=== PATIENT | female | born 1985 | race Hispanic/Latino ===

== ENCOUNTER 2017-01-02 10:19 | Emergency (ER) | payer OTHER ==
[~2017-01-02] VITALS: Ht 165.1 cm; Wt 72.1 kg
--- NOTE | 2017-01-02 11:22 | ED GI/GU/ABDOMINAL COMPLAINT ---
History of Present Illness General Chief Complaint: Abdominal Pain/Flank Pain Stated Complaint: ABD PAIN Source: patient Exam Limitations: no limitations Vital Signs & Intake/Output Vital Signs & Intake/Output Vital Signs Date Time Temp Pulse Resp B/P B/P Pulse O2 O2 Flow FiO2 Mean Ox Delivery Rate 01/02 1403 97.2 70 18 112/69 100 Room Air 01/02 1218 97.4 75 18 121/71 97 Room Air 01/02 1207 97 01/02 1206 97.1 01/02 1027 97.1 82 16 123/77 97 Room Air Allergies Coded Allergies: aspirin (HEMATOMAS 01/02/17) Reconcile Medications Acetaminophen (Tylenol Extra Strength) 500 MG TABLET 1 TAB PO TID PRN pain Ondansetron (Zofran Odt) 4 MG TAB.RAPDIS 1 TAB SL TID PRN nausea and vomiting Triage Note: PT STATES SHE HAS LOWER ABD PAIN. PT STATES HER MENSES JUST ENDED YESTERDAY AND STATES THE PAIN BEGAN TODAY AND SHE VOMITED X2 THIS AM. PT IS ALSO C/O FEELING DIZZY. PT DENIES DIARRHEA. Triage Nurses Notes Reviewed? yes ? N Is pt currently ? No HPI: This patient is a 31-year-old female the past medical history including nephrolithiasis and endometriosis as well as left-sided ovarian cyst status post left-sided oophorectomy who presented to the emergency department today accompanied by her for evaluation of lower abdominal pain. The patient reported the pain began last night and was coming and going. She reported that she took Aleve last night which did help. However, this morning at 8:30 this morning she began having lower abdominal pain again which has been constant since onset. No palliative factors. The patient reported that the pain is currently a 7 out of 10 and sharp. It is nonradiating. The patient reported that she vomited twice this morning with no blood in the vomitus. She had associated nausea, but not currently. The vomiting happened after she tried to eat breakfast. The patient also reported current dizziness. She reported that she was supposed to get her period starting today, but this month her period came last week and ended yesterday. She reported that she has endometriosis and normally she has a lot of abdominal cramping with her periods, but last week she did not have any abdominal symptoms. She reported that there seemed to be more blood than normal and, "more red within normal." The patient denied any urinary burning, urgency, frequency, or blood in the urine. She reported that she has intermittent constipation at baseline. No diarrhea. She denied any fevers, chills, chest pain, or difficulty breathing. The patient did report that her and her are currently trying to get naturally and are worried that this may have been a miscarriage. They are new to the area and do not have an HELP DESK ASSISTANT or primary care physician. Past History Travel History Traveled to [place] past 21 day Yes Medical History Any Pertinent Medical History? 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 No Review of Systems Review of Systems Constitutional: Reports: no symptoms. EENTM: Reports: no symptoms. Respiratory: Reports: no symptoms. Cardiovascular: Reports: no symptoms. GI: Reports: see HPI. Genitourinary: Reports: see HPI. Musculoskeletal: Reports: no symptoms. Skin: Reports: no symptoms. Neurological/Psychological: Reports: see HPI. Hematologic/Endocrine: Reports: see HPI. All Other Systems: Reviewed and Negative Physical Exam Physical Exam Gastrointestinal: normal bowel sounds, soft, NONDISTENDED. tYMPANIC TO PERCUSSION IN ALL 4 QUADRANTS. tENDERNESS TO PALPATION IN THE RIGHT LOWER QUADRANT AND MID LOWER ABDOMINAL REGION WITH NO REBOUND OR GUARDING. nO MASSES APPRECIATED. nO ORGANOMEGALY APPRECIATED Comments: Well-developed well-nourished person in no acute distress HEENT: Normal EENT exam, head normocephalic, moist mucous membranes PERRLA bilaterally. EOMI bilaterally with no nystagmus Neck: Supple, no lymphadenopathy Back: Normal gait. Normal inspection Cardiovascular: Regular rate and rhythm with no murmurs Respiratory: No respiratory distress. Speaking in full sentences Extremity: Normal and equal pulses Neuro: Alert oriented x3, cranial nerves II through XII grossly intact. Skin: No appreciable rash on exposed skin, skin is warm and dry. Psych: Mood and affect is normal Core Measures ACS in differential dx? No Severe Sepsis Present: No Septic Shock Present: No Progress Differential Diagnosis: AMI, appendicitis, biliary colic, bowel obstruction, colon cancer, cholecystitis, diverticulitis, ectopic , endometritis, gastritis, hepatitis, ischemic bowel, inflamm bowel dis, intrauterine , kidney stone, ovarian cyst, ovarian torsion, pancreatitis, PID/cervicitis, PUD/ GERD, perforated viscous, threatened AB, UTI/pyelo Plan of Care: Orders Procedure Date/time Status HUMAN BETA HCG TITRE 01/02 1137 Complete PARTIAL THROMBOPLASTIN TIME 01/02 1115 Complete PROTHROMBIN TIME 01/02 1115 Complete TYPE & SCREEN (NOT X-MATCH) 01/02 1115 Complete CULTURE,URINE 01/02 1103 Active URINE 01/02 1103 Active URINALYSIS 01/02 1103 Active LIPASE 01/02 1103 Complete DIRECT BILIRUBIN 01/02 1103 Complete COMPREHENSIVE METABOLIC PANEL 01/02 1103 Complete CBC WITHOUT DIFFERENTIAL 01/02 1103 Complete AMYLASE 01/02 1103 Complete Laboratory Tests 01/02/17 1353: Urine Color Pending, Urine Clarity Pending, Urine pH Pending, Ur Specific [place] Pending, Urine Protein Pending, Urine Ketones Pending, Urine Nitrite Pending, Urine Bilirubin Pending, Urine Urobilinogen Pending, Ur Leukocyte Esterase Pending, Ur Microscopic Pending, Urine Hemoglobin Pending, Urine Glucose Pending, Urine Test Pending 01/02/17 1137: Anion Gap 13, Estimated GFR > 60, BUN/Creatinine Ratio 17.1, Glucose 85, Calcium 9.6, Total Bilirubin 0.4, Direct Bilirubin 0.2, AST 22, ALT 29, Alkaline Phosphatase 87, Total Protein 7.5, Albumin 4.1, Globulin 3.4, Albumin/Globulin Ratio 1.2, Amylase 81, Lipase 145, Beta HCG, Quant < 2.4, PT 10.8, INR 1.03, APTT 31, CBC w Diff NO MAN DIFF REQ, RBC 5.09, MCV 86.6, MCH 29.4, RDW 12.3, MPV 7.1 L, Gran % 57.5, Lymphocytes % 30.0, Monocytes % 7.4, Eosinophils % 4.5, Basophils % 0.6, Absolute Granulocytes 3.9, Absolute Lymphocytes 2.0, Absolute Monocytes 0.5, Absolute Eosinophils 0.3, Absolute Basophils 0, PUBS MCHC 34.0 01/02/17 1115: Beta HCG, Quant Cancelled Microbiology 01/02 1103 URINE ROUT: Urine Culture - ORD Diagnostic Imaging: Viewed by Me: Ultrasound. Discussed w/RAD: Ultrasound. Radiology Impression: PATIENT: JOSEFINA TOVAR PRESENT AGE: 31 PATIENT ACCOUNT NO: [id number] : 83 LOCATION: [facility] ORDERING PHYSICIAN: JEANNE DIETZ PA-C SERVICE DATE: 01/02/17 EXAM TYPE: US - US-PELVIC MASS DIAG EXAMINATION: US PELVIC MASS DIAGNOSIS CLINICAL INFORMATION: 31-year-old female with positive beta-hCG present for evaluation of ectopic , retained products of conception and ovarian torsion. History of left oophorectomy in year 2010. Laparoscopic surgery for endometriosis in August 2014 . Appendectomy 7 months ago. COMPARISON: None TECHNIQUE: Transabdominal imaging of the pelvis was performed. FINDINGS: The uterus-cervix is 7.8 cm in length. The uterus measures 3.4 cm AP and 5.5 cm transverse. The myometrial echotexture is normal. The endometrium has normal, uniform echotexture and measures 0.5 cm AP. No fluid, mass or gestational sac within the endometrial cavity. The left ovary is surgically absent. The right ovary is 4.9 x 2.6 x 2 cm , volume of 18 mL. Color Doppler images with spectral waveforms show presence of normal arterial and venous flow within the right ovary. No pelvic free fluid. IMPRESSION: 1. Normal uterus and right ovary. No evidence of adnexal mass or ovarian torsion. 2. No sonographic evidence of an intrauterine , ectopic or retained products of conception. Given history of positive hCG level, recommend clinical follow-up. DICTATED BY: DESTINEY CORONADO MD DATE/ TIME DICTATED:01/02/171343 GLASS INSPECTOR:TANA DATE/TIME TRANSCRIBED: 01/02/171343 CONFIDENTIAL, DO NOT COPY WITHOUT APPROPRIATE AUTHORIZATION. < Electronically signed in Other Vendor System> SIGNED BY: DESTINEY CORONADO MD 01/02/17 4176 Initial ED EKG: none Comments: 01/02/2017 2:05:51 PM: I was at the patient's bedside for reevaluation. She reported that all of her symptoms have resolved after IV Tylenol and IV fluids. She reported that she is feeling much better. The patient denied any nausea. Unremarkable transvaginal ultrasound. No evidence of retained products of conception or of recent . Nondetected hCG titer. No evidence of ovarian cyst or ovarian torsion. Likely flare of this patient's underlying endometriosis versus viral syndrome. This patient does have an appointment with a new primary care physician scheduled for next week. I will be giving the patient the name of an HELP DESK ASSISTANT to establish care with. This patient is stable for outpatient symptomatic care. Instructed to return for any worsening symptoms or concerns. Departure Departure Disposition: HOME OR SELF CARE Condition: Stable Clinical Impression Primary Impression: Abdominal pain Qualifiers: Abdominal location: unspecified location Qualified Code: R10.9 - Unspecified abdominal pain Referrals: IVON SOARES DO (PCP) Additional Instructions: Take medication for nausea as prescribed. Take medication for pain as prescribed. Please be sure to attend your previously scheduled appointment with your new primary care physician next week as discussed. You may call the HELP DESK ASSISTANT whose information has been provided to you in this packet to schedule an appointment and establish care with. Be sure to stay hydrated. Return for any worsening symptoms or concerns. Departure Forms: Customer Survey General Discharge Information Prescriptions: Current Visit Scripts Ondansetron (Zofran Odt) 1 TAB SL TID PRN nausea and vomiting #10 TAB Acetaminophen (Tylenol Extra Strength) 1 TAB PO TID PRN pain #20 TAB
[2017-01-02 11:55] LABS: ABSOLUTE BASOPHIL COUNT 0 /CUMM (0.0-0.2); ABSOLUTE EOSINOPHIL COUNT 0.3 /CUMM (0.0-0.7); ABSOLUTE GRANULOCYTE CT 3.9 /CUMM (1.4-6.5); ABSOLUTE MONOCYTE COUNT 0.5 /CUMM (0.10-0.60); BASOPHIL % 0.6 % (0.0-2.0); EOSINOPHIL % 4.5 % (0-5); GRANULOCYTE % 57.5 % (42.2-75.2); MEAN CORPUSCULAR HGB 29.4 PG (27.0-31.0); MEAN CORPUSCULAR VOLUME 86.6 FL (81.0-99.0); MEAN PLATELET VOLUME 7.1 FL (7.4-10.4); PLATELET COUNT 319 /CUMM (130-400); RBC DISTRIBUTION WIDTH 12.3 % (11.5-14.5); RED BLOOD CELL CT 5.09 /CUMM (4.20-5.40); WHITE BLOOD CELL COUNT 6.8 /CUMM (4.8-10.8)
[2017-01-02 12:12] LABS: PT 10.8 SEC (9.4-12.5); PTT 31 SEC (25-37)
--- NOTE | 2017-01-02 13:52 | ULTRASOUND REPORT ---
EXAMINATION: US PELVIC MASS DIAGNOSIS CLINICAL INFORMATION: 31-year-old female with positive beta-hCG present for evaluation of ectopic , retained products of conception and ovarian torsion. History of left oophorectomy in year 2010. Laparoscopic surgery for endometriosis in August 2014 . Appendectomy 7 months ago. COMPARISON: None TECHNIQUE: Transabdominal imaging of the pelvis was performed. FINDINGS: The uterus-cervix is 7.8 cm in length. The uterus measures 3.4 cm AP and 5.5 cm transverse. The myometrial echotexture is normal. The endometrium has normal, uniform echotexture and measures 0.5 cm AP. No fluid, mass or gestational sac within the endometrial cavity. The left ovary is surgically absent. The right ovary is 4.9 x 2.6 x 2 cm, volume of 18 mL. Color Doppler images with spectral waveforms show presence of normal arterial and venous flow within the right ovary. No pelvic free fluid. IMPRESSION: 1. Normal uterus and right ovary. No evidence of adnexal mass or ovarian torsion. 2. No sonographic evidence of an intrauterine , ectopic or retained products of conception. Given history of positive hCG level, recommend clinical follow-up.
[2017-01-02 14:03] VITALS: BP 112/69
[2017-01-02] MEDS ORDERED: TYLENOL EXTRA500 M2 PO (14:09)
[2017-01-02] MEDS ORDERED: ZOFRAN ODT4 M1 SL (14:09)
== END 2017-01-02 14:22 ==
LOC: ERH 10:19
PROVIDERS: Physician Assistant
DX: R10.30 Lower abdominal pain, unspecified (principal)
CPT/HCPCS: 81001; 81025; 87086; 87147; 96374; J0131